=== PATIENT | male | born 1985 | race Caucasian/White ===

== ENCOUNTER 2019-02-04 16:53 | Emergency (ER) | payer MEDICAID ==
[~2019-02-04] VITALS: Ht 180.3 cm; Wt 65.8 kg
[2019-02-04 16:59] VITALS: BP_SYST 104
--- NOTE | 2019-02-04 16:59 | NUR ---
Patient to [facility] for evaluation. Side rails up. Report given to RODOLFO Lord
--- NOTE | 2019-02-04 17:20 | NUR ---
ER at bedside examining patient.
--- NOTE | 2019-02-04 17:21 | NUR ---
BIB Officer in custody for medical clearance. Patient A&O, afebrile, skin pink & warm, cap refil <3, denies N/V/D, denies pain. Patient states he uses heroin x4 times daily, patient states he has used x1 today and has chills & sweats.
--- NOTE | 2019-02-04 17:45 | NUR ---
Patient given written and verbal discharge instructions and verbalizes understanding. ER MD discussed with patient the results and treatment provided. Patient in stable condition. ID arm band removed. No Rx given. Patient educated on pain management and to follow up with PMD. Pain Scale 0/10. Opportunity for questions provided and answered. Medication side effect fact sheet provided.
[2019-02-04 18:15] VITALS: BP_SYST 110
== END 2019-02-04 17:45 ==
LOC: SED 16:53
DX: F11.90 Opioid use, unspecified, uncomplicated (principal); Z02.89 Encounter for other administrative examinations
CPT/HCPCS: 99283